=== PATIENT | male | born 1995 | race Caucasian/White ===

== ENCOUNTER 2018-07-13 12:01 | Observation (INO) ==
[2018-07-13] MEDS ORDERED: Morphine Inj 4 MG/ML Vial IV.PUSH ONE ×2 (13:12→15:09)
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
[2018-07-13 13:55] LABS: Baso % (Auto) 0.3 % (0.0-2.0); Eos # (Auto) 0.1 th/mm3 (0.0-0.4); Eos % (Auto) 0.7 % (0.0-4.0); Hematocrit 47.9 % (39.0-51.0); Hemoglobin 16.2 gm/dL (13.0-17.0); Lymph % (Auto) 8.5 % (9.0-44.0); Mean Corpuscular HGB Conc 33.8 % (32.0-36.0); Mean Corpuscular Hemoglobin 30.2 pg (27.0-34.0); Mean Corpuscular Volume 89.4 fL (80.0-100.0); Mono # (Auto) 1.1 th/mm3 (0.0-0.9); Mono % (Auto) 8.9 % (0.0-8.0); Neut # (Auto) 9.7 th/mm3 (1.8-7.7); Neut % (Auto) 81.6 % (16.0-70.0); Platelet Count 174 th/mm3 (150-450); Red Blood Count 5.36 mil/mm3 (4.50-5.90); White Blood Count 11.9 th/mm3 (4.0-11.0)
[2018-07-13 14:04] LABS: Activated Partial Thrombo Time 25.7 sec (23.4-31.7); INR 1.2 Ratio; Prothrombin Time 11.7 sec (9.8-11.6)
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
[2018-07-13 14:24] LABS: Calcium 8.9 mg/dL (8.5-10.1); Potassium 3.8 meq/L (3.5-5.1)
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
[2018-07-13] MEDS ORDERED: Bisacodyl 10 MG Supp RECTAL PRN (16:31)
[2018-07-13] MEDS ORDERED: HYDROmorphone PF Inj 0.5 MG/0.5 ML Syringe IV.PUSH PRN (16:34)
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
[2018-07-13] MEDS ORDERED: ceFAZolin 1 GM Premix Inj 1 GM/50 ML FROZ.PIGGY IV.SIG ONE (17:45)
[2018-07-13] MEDS: HYDROmorphone PF Inj 1 MG/ML Ampul IV.PUSH PRN ×2 (18:30→22:32)
[2018-07-13] MEDS: Senna/Docusate Sodium 8.6/50 MG Tablet PO SCH (22:35)
[2018-07-14] MEDS: HYDROmorphone PF Inj 1 MG/ML Ampul IV.PUSH PRN ×4 (04:19→20:59)
[2018-07-14] MEDS ORDERED: Metoprolol Tartrate 25 MG Tablet PO ONE (08:45)
[2018-07-14] MEDS ORDERED: Sodium Chlor 0.9% Inj 500 ML IV.CONT ONE (08:45)
[2018-07-14] MEDS ORDERED: Chlorhexidine Gluconate 2% 1 Pack (2 Cloths) TOPICAL ONE (08:45)
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
[2018-07-14] MEDS ORDERED: fentaNYL Citrate Inj 250 MCG/5 ML Ampul ONE (12:46)
[2018-07-14] MEDS ORDERED: Lidocaine PF 1% Inj 5 ML Syringe OTHER ONE (13:28)
[2018-07-14] MEDS ORDERED: Artificial Tears Opth Oint 3.5 GM Tube ONE (13:36)
[2018-07-14] MEDS ORDERED: Chlorhexidine Gluconate 0.12% Liq 15 ML UDC ONE (13:36)
[2018-07-14] MEDS ORDERED: ceFAZolin 1 GM Premix Inj 1 GM/50 ML FROZ.PIGGY IV.SIG ONE (13:36)
[2018-07-14] MEDS ORDERED: Lidocaine 2%/Epinephrine 1:200,000 PF Inj 20 ML Vial ONE (13:37)
[2018-07-14] MEDS ORDERED: Balanced Salt Opth Irrigation 15 APPLIC/15 ML Bottle ONE (13:37)
[2018-07-14] MEDS: Senna/Docusate Sodium 8.6/50 MG Tablet PO SCH ×2 (13:59→21:03)
[2018-07-14] MEDS ORDERED: *Ondansetron Inj 4 MG/2 ML Vial PERIprocedural Use ONLY ONE (15:40)
[2018-07-14] MEDS ORDERED: MethylPREDNISolone Sod Succinate Inj 125 MG/2 ML Vial ONE (15:52)
[2018-07-14] MEDS ORDERED: *Meperidine Inj 25 MG/ML Vial PERIprocedural Use ONLY ONE (15:55)
[2018-07-14] MEDS: MethylPREDNISolone Sod Succinate Inj 125 MG/2 ML Vial IV.PUSH SCH ×2 (16:49→22:09)
[2018-07-14] MEDS: ceFAZolin 1 GM Premix Inj 1 GM/50 ML FROZ.PIGGY IV.SIG SCH (22:08)
[2018-07-15] MEDS: HYDROmorphone PF Inj 1 MG/ML Ampul IV.PUSH PRN (03:41)
[2018-07-15 04:31] VITALS: TEMP 97.6
[2018-07-15] MEDS: ceFAZolin 1 GM Premix Inj 1 GM/50 ML FROZ.PIGGY IV.SIG SCH (05:39)
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
[2018-07-15 08:59] VITALS: BP 124/60; PULSE 68; RESP 16; O2SAT 100
[2018-07-15] MEDS: Senna/Docusate Sodium 8.6/50 MG Tablet PO SCH (11:08)
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
== END 2018-07-15 12:05 | disposition home or self-care (01) ==
LOC: NEDH 12:01 → NEPE 12:01 → N06 17:03
PROVIDERS: ADMIT Hospitalist; ATTEND Hospitalist
PROC: ORIFMAN (2018-07-14 13:28)